=== PATIENT | male | born 1970 | race Two or more races ===

== ENCOUNTER 2017-01-08 06:39 | Emergency (ER) | payer OTHER ==
[~2017-01-08] VITALS: Ht 165.1 cm; Wt 83.2 kg
[2017-01-08 06:41] VITALS: BP_DIAS 81
[2017-01-08] MEDS ORDERED: DIAZEPAM 5 MG TABLET ONE (07:50)
[2017-01-08] MEDS ORDERED: KETOROLAC 30 MG/1 ML ONE (07:50)
[2017-01-08] MEDS ORDERED: KETOROLAC 30 MG/1 ML IM ONE (08:00)
[2017-01-08] MEDS ORDERED: DIAZEPAM 5 MG TABLET PO ONE (08:00)
[2017-01-08 08:37] VITALS: BP_SYST 126
== END 2017-01-08 08:40 | disposition home or self-care (01) ==
LOC: ED 08:28
DX: M54.6 Pain in thoracic spine (principal); M62.830 Muscle spasm of back
CPT/HCPCS: 72072; 96372; 99284; J1885

== ENCOUNTER 2017-12-22 16:13 | Emergency (ER) | payer OTHER ==
[~2017-12-22] VITALS: Ht 160 cm; Wt 85.9 kg
[2017-12-22 16:19] VITALS: BP 134/77
[2017-12-22] MEDS ORDERED: DIPH,PERTUSS(ACELL),TET VAC/PF 0.5 ML IM-VACC ONE ×2 (16:30→16:46)
[2017-12-22] MEDS ORDERED: LIDOCAINE 2%, 10ML INFIL ONE (16:30)
[2017-12-22] MEDS ORDERED: LIDOCAINE-MPF 1%, 2ML ONE (16:46)
[2017-12-22] MEDS ORDERED: LIDOCAINE-MPF 2%, 2ML ONE (16:48)
== END 2017-12-22 18:10 | disposition home or self-care (01) ==
LOC: ED 18:04
DX: S01.511A Laceration without foreign body of lip, initial encounter (principal); Z87.891 Personal history of nicotine dependence; W22.8XXA Striking against or struck by other objects, initial encounter; Y93.89 Activity, other specified; Y99.0 Civilian activity done for income or pay; Y92.69 Other specified industrial and construction area as the place of occurrence of the external cause
CPT/HCPCS: 40650; 90471; 90715; 99284; J3490